=== PATIENT | female | born 1985 | race African-American/Black ===

== ENCOUNTER 2022-03-14 05:28 | Emergency (ER) | payer SELFPAY ==
[2022-03-14] MEDS ORDERED: Ketorolac Tromethamine 30 MG/ML VIAL ONE (06:06)
[2022-03-14] MEDS ORDERED: Diazepam 10 MG/2 ML SYRINGE ONE (06:13)
== END 2022-03-14 06:08 | disposition home or self-care (01) ==
LOC: ERS 05:28
DX: M54.31 Sciatica, right side (principal)
CPT/HCPCS: 96372; 99283; J1885; J3360